=== PATIENT | male | born 1940 | race Caucasian/White ===

== ENCOUNTER 2022-06-19 14:21 | Emergency (ER) | payer OTHER, MEDICARE ==
[~2022-06-19] VITALS: Ht 172.7 cm; Wt 79.8 kg
[2022-06-19] MEDS ORDERED: LISI20 PO (15:24)
[2022-06-19] MEDS ORDERED: SPIR25 PO (15:24)
[2022-06-19] MEDS ORDERED: BUPR150ER (15:24)
[2022-06-19] MEDS ORDERED: CILOSTAZOL50 M1 PO (15:25)
[2022-06-19] MEDS ORDERED: Crestor40 MG PO (15:25)
[2022-06-19] MEDS ORDERED: AMLO10 PO (15:25)
[2022-06-19] MEDS ORDERED: XARELTO20 MG PO (15:26)
== END 2022-06-19 16:25 | disposition home or self-care (01) ==
LOC: ER 14:21
DX: S01.81XA Laceration without foreign body of other part of head, initial encounter (principal); W01.10XA Fall on same level from slipping, tripping and stumbling with subsequent striking against unspecified object, initial encounter; Z88.0 Allergy status to penicillin; Z88.8 Allergy status to other drugs, medicaments and biological substances
CPT/HCPCS: 12011; 70450; 72125; 99283-25